=== PATIENT | male | born 1935 | race Caucasian/White ===

== ENCOUNTER 2016-09-27 12:31 | Inpatient (IN) | payer MEDICARE, OTHER ==
--- NOTE | 2016-09-27 12:53 | ER Document Report ---
ED Medical Screen (RME) - General Stated Complaint: RIGHT SIDE BODY PAIN Mode of Arrival: Wheelchair Information source: Patient Notes: Patient presents with right-sided abdominal pain. Patient had an outpatient ultrasound and was advised to come to the emergency department. Patient's outpatient ultrasound shows a large hepatic mass concerning for hepatocellular carcinoma as well as a thrombus in the right hepatic vein and IVC. Patient states he does have some chest pain with respirations daily for the past month I have greeted and performed a rapid initial assessment of this patient. A comprehensive ED assessment and evaluation of the patient, analysis of test results and completion of the medical decision making process will be conducted by additional ED providers. TRAVEL OUTSIDE OF THE [place] IN LAST 30 DAYS: No - Related Data Allergies/Adverse Reactions: aspirin [Aspirin] Allergy (Verified 09/27/16 12:48) bacitracin [Bacitracin] Allergy (Verified 09/27/16 12:48) diphenhydramine HCl [From Benadryl] Allergy (Verified 09/27/16 12:48) latex Allergy (Verified 09/27/16 12:48) Penicillins Allergy (Verified 09/27/16 12:48) Sulfa (Sulfonamide Antibiotics) Allergy (Verified 09/27/16 12:48) ibuprofen Adverse Reaction (Verified 09/27/16 12:48) naproxen sodium [From Aleve] Adverse Reaction (Verified 09/27/16 12:48) Past Medical History - Past Medical History Cardiac Medical History: Reports: Hx Hypercholesterolemia, Hx Hypertension Pulmonary Medical History: Reports: Hx COPD Denies: Hx Tuberculosis GI Medical History: Reports: Hx Gastroesophageal Reflux Disease - Immunizations Hx Diphtheria, Pertussis, Tetanus Vaccination: Yes Physical Exam - Vital signs Vitals: Temp Pulse Resp BP Pulse Ox 98.2 F 98 17 160/74 H 96 09/27/16 12:37 09/27/16 12:37 09/27/16 12:37 09/27/16 12:37 09/27/16 12:37 - Abdominal Tenderness: Tender - Right lateral side pain Course - Vital Signs Vital signs: Temp Pulse Resp BP Pulse Ox 98.2 F 98 17 160/74 H 96 09/27/16 12:37 09/27/16 12:37 09/27/16 12:37 09/27/16 12:37 09/27/16 12:37
[2016-09-27 13:45] LABS: ABSOLUTE BASOPHILS # (AUTO) 0.1 10^3/uL (0.0-0.2); ABSOLUTE EOSINOPHILS # (AUTO) 1.1 10^3/uL (0.0-0.6); ABSOLUTE MONOCYTES (AUTO) 0.5 10^3/uL (0.1-1.4); ABSOLUTE NEUT (AUTO) 4.9 10^3/uL (1.7-8.2); BASOPHILS % (AUTO) 1.3 % (0-2); EOSINOPHILS % (AUTO) 14.9 % (0-6); HEMATOCRIT 31.1 % (37.9-51.0); HEMOGLOBIN 10.5 g/dL (13.5-17.0); HGB HCT DIFFERENCE 0.4; LYMPHOCYTES % (AUTO) 12.6 % (13-45); MEAN CORPUSCULAR HEMOGLOBIN 28.5 pg (27.0-33.4); MEAN CORPUSCULAR HGB CONC 33.9 g/dL (32.0-36.0); MEAN CORPUSCULAR VOLUME 84 fl (80-97); MONOCYTES % (AUTO) 6.6 % (3-13); RED BLOOD COUNT 3.69 10^6/uL (4.35-5.55); SEGMENTED NEUTROPHILS % (AUTO) 64.6 % (42-78); WHITE BLOOD COUNT 7.5 10^3/uL (4.0-10.5)
[2016-09-27 13:50] LABS: PROTHROMBIN TIME 13.7 SEC (11.4-15.4)
[2016-09-27 13:51] LABS: PARTIAL THROMBOPLASTIN TIME 33.3 SEC (23.5-35.8)
--- NOTE | 2016-09-27 14:06 | ER Document Report ---
ED General Pain - General Chief Complaint: Back Pain Stated Complaint: RIGHT SIDE BODY PAIN Mode of Arrival: Wheelchair Notes: The patient is an 80-year-old male, PMHx COPD, Mell ruiz, presents with several weeks of right-sided abdominal pain. He had an outpatient ultrasound by his primary care physician of his right upper quadrant which showed an IVC and right hepatic vein partial thrombus with a large hepatic mass concerning for hepatocellular carcinoma. He was placed on OxyContin and oxycodone 2 weeks ago for the pain. He denies any current pain. Denies weight loss, fevers, night sweats, nausea, vomiting, abdominal swelling, headache, back pain, chest pain or shortness of breath. TRAVEL OUTSIDE OF THE [place] IN LAST 30 DAYS: No - Related Data Allergies/Adverse Reactions: aspirin [Aspirin] Allergy (Verified 09/27/16 12:48) bacitracin [Bacitracin] Allergy (Verified 09/27/16 12:48) diphenhydramine HCl [From Benadryl] Allergy (Verified 09/27/16 12:48) latex Allergy (Verified 09/27/16 12:48) Penicillins Allergy (Verified 09/27/16 12:48) Sulfa (Sulfonamide Antibiotics) Allergy (Verified 09/27/16 12:48) ibuprofen Adverse Reaction (Verified 09/27/16 12:48) naproxen sodium [From Aleve] Adverse Reaction (Verified 09/27/16 12:48) Past Medical History - General Information source: Patient - Social History Smoking Status: Never Smoker Chew tobacco use (# tins/day): No Frequency of alcohol use: None Drug Abuse: None Family History: Reviewed & Not Pertinent Patient has suicidal ideation: No Patient has homicidal ideation: No - Past Medical History Cardiac Medical History: Reports: Hx Hypercholesterolemia, Hx Hypertension Pulmonary Medical History: Reports: Hx COPD Denies: Hx Tuberculosis Renal/ Medical History: Denies: Hx Peritoneal Dialysis GI Medical History: Reports: Hx Gastroesophageal Reflux Disease - Immunizations Hx Diphtheria, Pertussis, Tetanus Vaccination: Yes Hx Pneumococcal Vaccination: 07/16/13 Review of Systems - Review of Systems Notes: REVIEW OF SYSTEMS: CONSTITUTIONAL: -fevers, -chills EENT: -eye pain, -difficulty swallowing, -nasal congestion CARDIOVASCULAR:-chest pain, -syncope. RESPIRATORY: -cough, -SOB GASTROINTESTINAL: +abdominal pain, -nausea, -vomiting, -diarrhea GENITOURINARY: -dysuria, -hematuria MUSCULOSKELETAL: -back pain, -neck pain SKIN: -rash or skin lesions. HEMATOLOGIC: -easy bruising or bleeding. LYMPHATIC: -swollen, enlarged glands. NEUROLOGICAL: -altered mental status or loss of consciousness, -headache, - neurologic symptoms PSYCHIATRIC: -anxiety, -depression. ALL OTHER SYSTEMS REVIEWED AND NEGATIVE. Physical Exam - Vital signs Vitals: Temp Pulse Resp BP Pulse Ox 98.2 F 98 17 160/74 H 96 09/27/16 12:37 09/27/16 12:37 09/27/16 12:37 09/27/16 12:37 09/27/16 12:37 - Notes Notes: PHYSICAL EXAMINATION: GENERAL: Well-appearing, well-nourished and in no acute distress. HEAD: Atraumatic, normocephalic. EYES: Pupils equal round and reactive to light, extraocular movements intact, sclera anicteric, conjunctiva are normal. ENT: nares patent, oropharynx clear without exudates. Moist mucous membranes. NECK: Normal range of motion, supple without lymphadenopathy LUNGS: Breath sounds clear to auscultation bilaterally and equal. No wheezes rales or rhonchi. HEART: Regular rate and rhythm without murmurs ABDOMEN: Soft, nontender, normoactive bowel sounds. No guarding, no rebound. No masses appreciated. No ascites. EXTREMITIES: Normal range of motion. 1+ pitting edema. No cyanosis. NEUROLOGICAL: Cranial nerves grossly intact. Normal speech, normal gait. Normal sensory, motor, and reflex exams. PSYCH: Normal mood, normal affect. SKIN: Warm, Dry, normal turgor, no rashes or lesions noted. Course - Re-evaluation Re-evalutation: Patient with ultrasound concerning for new hepatocellular carcinoma and partial thrombus in IVC and right hepatic vein. Spoke to Dr. Henry (Oncology military source operations specialist ) and he recommends beginning subcutaneous Lovenox and obtaining CT abdomen and pelvis and sending AFP, hepatitis panel and hep C PCR. He will see patient tomorrow morning. Spoke to patient and and made them aware of the high likelihood of liver cancer. They understand. Spoke to Dr. Lind and he has accepted patient as Inpatient Telemetry at 15:15. 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
[2016-09-27 14:15] LABS: ALANINE AMINOTRANSFERASE 83 U/L (21-72); ALBUMIN 3.4 g/dL (3.5-5.0); ALKALINE PHOSPHATASE 141 U/L (38-126); ANION GAP 14 (5-19); ASPARTATE AMINO TRANSFERASE 103 U/L (17-59); BILIRUBIN,TOTAL 1.6 mg/dL (0.2-1.3); BLOOD UREA NITROGEN 23 mg/dL (7-20); CALCIUM 9.4 mg/dL (8.4-10.2); CARBON DIOXIDE 24 mmol/L (22-30); CHLORIDE 101 mmol/L (98-107); CREATINE KINASE 160 U/L (55-170); CREATININE RESULT 0.96 mg/dL (0.52-1.25); GLUCOSE 137 mg/dL (75-110); MAGNESIUM 1.9 mg/dL (1.6-2.3); POTASSIUM 4.2 mmol/L (3.6-5.0); SODIUM 138.5 mmol/L (137-145); TOTAL PROTEIN 6.5 g/dL (6.3-8.2)
[2016-09-27 14:26] LABS: CREATINE KINASE MB 2.29 ng/mL (<4.55)
[2016-09-27 14:28] LABS: TROPONIN I < 0.012 ng/mL
[2016-09-27] MEDS ORDERED: ENOXAPARIN SODIUM INJ 80 MG/0.8 ML DISP.SYRIN SUBCUT ONE (14:58)
--- NOTE | 2016-09-27 16:53 | EKG REPORT ---
SEVERITY:- NORMAL ECG - SINUS RHYTHM : Confirmed by: Jacqui Oliveros MD 27-Sep-2016 16:53:27
[2016-09-27] MEDS ORDERED: ONDANSETRON HCL INJ/PF 4 MG/2 ML SDV IV PRN (18:01)
[2016-09-27] MEDS ORDERED: ACETAMINOPHEN 325 MG TABLET PO PRN (18:01)
[2016-09-27] MEDS ORDERED: IPRATROPIUM/ALBUTEROL 0.5-2.5 MG/3 ML AMPUL NEB PRN (18:01)
--- NOTE | 2016-09-27 18:23 | PDOC H&P ---
History of Present Illness Admission Date/PCP: 09/27/16 16:16 Patient complains of: Abnormal abdominal ultrasound History of Present Illness: JADEN TIJERINA is a 80 year old male, with COPD hypertension and hyperlipidemia, sent to the emergency room from the primary care physician's office due to an abdominal ultrasound that was abnormal. The patient has been dealing with abdominal pain for the past several months. Patient stated that it will radiate on the shoulder blade down to the right side of the abdomen. Sometimes it goes down to the legs. It comes and goes, sharp in nature, lasts for only a few seconds. Because of the recurrence in nature his primary care physician obtain an abdominal ultrasound of which a finding of inferior vena cava thrombosis and hepatic vein thrombosis was noted. There was likewise a hepatic mass. The patient was sent to the emergency room for evaluation and was referred for admission. Past Medical History Cardiac Medical History: Reports: Hyperlipidema, Hypertension Pulmonary Medical History: Reports: Chronic Obstructive Pulmonary Disease (COPD) Denies: Tuberculosis GI Medical History: Reports: Gastroesophageal Reflux Disease Past Surgical History Past Surgical History: Reports: Carotid Endarterectomy, Herniorrhaphy, Other - Chest tube placement Social History Information Source: Patient Smoking Status: Never Smoker Frequency of Alcohol Use: None Hx Recreational Drug Use: No Drugs: None Hx Prescription Drug Abuse: No Family History Family History: Malignancy Parental Family History Reviewed: Yes Children Family History Reviewed: Yes Sibling(s) Family History Reviewed.: Yes Medication/Allergy Home Medications: Fexofenadine HCl [Sammi] 180 mg PO DAILY 09/27/16 Fluticasone Propionate [Flonase Nasal [place] 50 Mcg/[place] 16 gm] 2 spray NASL DAILY 09/27/16 Fluticasone/Salmeterol [Advair 500-50 Diskus 28 Dose] 1 puff IH DAILY 09/27/16 Guaifenesin [Mucinex] 2 tab PO BID 09/27/16 Montelukast Sodium [Singulair 10 mg Tablet] 10 mg PO QPM 09/27/16 [place]-3 Acid Ethyl Esters [Lovaza 1 gm Capsule] 2 gm PO BID 09/27/16 Omeprazole 20 mg PO DAILY 09/27/16 Simvastatin [Zocor 80 mg Tablet] 80 mg PO DAILY 09/27/16 Tiotropium [place] [Spiriva Handihaler 18 mcg/dose (30 Dose)] 1 cap IH DAILY Vitamin E [Natural Vitamin E] 200 unit PO DAILY 09/27/16 Allergies/Adverse Reactions: aspirin [Aspirin] Allergy (Verified 09/27/16 12:48) bacitracin [Bacitracin] Allergy (Verified 09/27/16 12:48) diphenhydramine HCl [From Benadryl] Allergy (Verified 09/27/16 12:48) latex Allergy (Verified 09/27/16 12:48) Penicillins Allergy (Verified 09/27/16 12:48) Sulfa (Sulfonamide Antibiotics) Allergy (Verified 09/27/16 12:48) ibuprofen Adverse Reaction (Verified 09/27/16 12:48) naproxen sodium [From Aleve] Adverse Reaction (Verified 09/27/16 12:48) Review of Systems Constitutional: PRESENT: weight loss - Unquantified. ABSENT: chills, fever(s), headache(s), night sweats, weight gain Eyes: ABSENT: visual disturbances Ears: ABSENT: hearing changes Nose, Mouth, and Throat: ABSENT: mouth pain, sore throat Cardiovascular: ABSENT: chest pain, dyspnea on exertion, edema, orthropnea, palpitations Respiratory: PRESENT: cough. ABSENT: dyspnea, hemoptysis Gastrointestinal: PRESENT: abdominal pain. ABSENT: constipation, diarrhea, hematemesis, hematochezia, nausea, vomiting Genitourinary: PRESENT: nocturia. ABSENT: dysuria, hematuria Musculoskeletal: ABSENT: joint swelling Integumentary: ABSENT: pruritus, rash, wounds Neurological: ABSENT: abnormal gait, abnormal speech, confusion, dizziness, focal weakness, syncope Psychiatric: ABSENT: anxiety, depression, homidical ideation, suicidal ideation Endocrine: ABSENT: cold intolerance, heat intolerance, polydipsia, polyuria Hematologic/Lymphatic: ABSENT: easy bleeding, easy bruising Physical Exam Vital Signs: Temp Pulse Resp BP Pulse Ox 98.2 F 98 20 159/77 H 94 09/27/16 12:37 09/27/16 12:37 09/27/16 17:32 09/27/16 17:32 09/27/16 17:32 Results Impressions: Chest X-Ray 09/27/16 12:52 IMPRESSION: COPD. NO ACUTE RADIOGRAPHIC FINDING IN THE CHEST. 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?: Yes (2) Hepatic vein thrombosis Is this a current diagnosis for this admission?: Yes (3) Lesion of liver Is this a current diagnosis for this admission?: Yes (4) COPD (chronic obstructive pulmonary disease) Qualifiers: COPD type: unspecified COPD Qualified Code(s): J44.9 - Chronic obstructive pulmonary disease, unspecified Is this a current diagnosis for this admission?: Yes (5) Hyperlipidemia Qualifiers: Hyperlipidemia type: unspecified Qualified Code(s): E78.5 - Hyperlipidemia, unspecified Is this a current diagnosis for this admission?: Yes (6) Hypertension Qualifiers: Hypertension type: essential hypertension Qualified Code(s): I10 - Essential (primary) hypertension Is this a current diagnosis for this admission?: Yes (7) GERD (gastroesophageal reflux disease) Qualifiers: Esophagitis presence: without esophagitis Qualified Code(s): K21.9 - Gastro-esophageal reflux disease without esophagitis Is this a current diagnosis for this admission?: Yes - Time Time Spent: 30 to 50 Minutes - Inpatient Certification Based on my medical assessment, after consideration of the patient's comorbidities, presenting symptoms, or acuity I expect that the services needed warrant INPATIENT care.: Yes I certify that my determination is in accordance with my understanding of Medicare's requirements for reasonable and necessary INPATIENT services [42 CFR 412.3e].: Yes Medical Necessity: Significant Comorbidiites Make Outpatient Treatment Too Risky , Need Close Monitoring Due to Risk of Patient Decompensation, Risk of Diagnosis Which Will Require Inpatient Eval/Care/Monitoring Post Hospital Care: D/C Natural Science Manager Documentation - Plan Summary Plan Summary: The patient will be admitted to telemetry. We will consult oncology for further evaluation and management. We will begin Lovenox full dose. We will check alpha-fetoprotein, carcinoembryonic antigen. We will monitor hematocrit and stool for occult blood. We will monitor liver function tests as well. Further testing depends on initial evaluation as outlined above.
[2016-09-27 22:33] LABS: APPEARANCE,URINE CLEAR; BILIRUBIN,URINE NEGATIVE (NEGATIVE); GLUCOSE, URINE NEGATIVE (NEGATIVE); KETONES,URINE NEGATIVE (NEGATIVE); LEUKOCYTE ESTERASE,URINE NEGATIVE (NEGATIVE); NITRITE,URINE NEGATIVE (NEGATIVE); PROTEIN,URINE NEGATIVE (NEGATIVE); URINE SPECIFIC GRAVITY 1.024
[2016-09-27] MEDS: MONTELUKAST SODIUM 10 MG TABLET PO SCH (23:30)
[2016-09-28] MEDS: NORMAL SALINE 1000 ML 1,000 ML IV PRN ×2 (00:29→18:07)
[2016-09-28] MEDS: LANSOPRAZOLE 30 MG TAB.RAP.DR PO SCH ×2 (06:04→18:07)
[2016-09-28] MEDS: ENOXAPARIN SODIUM INJ 80 MG/0.8 ML DISP.SYRIN SUBCUT SCH (06:06)
[2016-09-28 06:31] LABS: ABSOLUTE BASOPHILS # (AUTO) 0.2 10^3/uL (0.0-0.2); ABSOLUTE EOSINOPHILS # (AUTO) 1.3 10^3/uL (0.0-0.6); ABSOLUTE LYMPHOCYTES (AUTO) 2.1 10^3/uL (0.5-4.7); ABSOLUTE MONOCYTES (AUTO) 0.7 10^3/uL (0.1-1.4); ABSOLUTE NEUT (AUTO) 4.1 10^3/uL (1.7-8.2); BASOPHILS % (AUTO) 2.2 % (0-2); EOSINOPHILS % (AUTO) 15.4 % (0-6); HEMATOCRIT 32.3 % (37.9-51.0); HEMOGLOBIN 10.6 g/dL (13.5-17.0); HGB HCT DIFFERENCE -0.5; LYMPHOCYTES % (AUTO) 25.1 % (13-45); MEAN CORPUSCULAR HEMOGLOBIN 27.6 pg (27.0-33.4); MEAN CORPUSCULAR HGB CONC 32.8 g/dL (32.0-36.0); MEAN CORPUSCULAR VOLUME 84 fl (80-97); RED BLOOD COUNT 3.84 10^6/uL (4.35-5.55); RED CELL DISTRIBUTION WIDTH 15.8 % (11.5-14.0); SEGMENTED NEUTROPHILS % (AUTO) 49.3 % (42-78); WHITE BLOOD COUNT 8.3 10^3/uL (4.0-10.5)
[2016-09-28 06:43] LABS: ANION GAP 12 (5-19); BLOOD UREA NITROGEN 18 mg/dL (7-20); CALCIUM 9.5 mg/dL (8.4-10.2); CARBON DIOXIDE 24 mmol/L (22-30); CHLORIDE 102 mmol/L (98-107); CREATININE RESULT 0.87 mg/dL (0.52-1.25); GLUCOSE 79 mg/dL (75-110); MAGNESIUM 1.9 mg/dL (1.6-2.3); PHOSPHORUS 3.6 mg/dL (2.5-4.5); POTASSIUM 4.3 mmol/L (3.6-5.0); SODIUM 137.8 mmol/L (137-145)
[2016-09-28] MEDS: LORATADINE 10 MG TABLET PO SCH (09:14)
[2016-09-28] MEDS: DOCUSATE SODIUM 100 MG CAPSULE PO SCH ×2 (09:17→18:08)
[2016-09-28] MEDS: GUAIFENESIN 600 MG TABLET.SA PO SCH ×2 (09:17→18:08)
[2016-09-28] MEDS: FLUTICASONE/SALMETEROL DISKUS 500-50 MCG/DOSE IH SCH (09:17)
[2016-09-28] MEDS: FLUTICASONE NASAL SPRAY 50 MCG/SPRY 120 SPRAY/16 GM NASL SCH (09:18)
[2016-09-28] MEDS: TIOTROPIUM BROMIDE DPI 5 CAP/KIT (18 MCG/CAP) IH SCH (09:18)
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
[2016-09-28] MEDS ORDERED: (PENDING PHARMACY ID) (Oxycodone Hcl/Acetaminophen [Oxycodon-Acetaminophen 7.5-325] 1 TAB) PO PRN (13:46)
--- NOTE | 2016-09-28 13:46 | PDOC PROGRESS REPORT ---
Subjective Progress Note for:: 09/28/16 Subjective:: Voiced no complaints. No abdominal pain nausea or vomiting. No tea-colored urine. No noted pale stools. No reported jaundice. No bleeding noted. Physical Exam Vital Signs: Temp Pulse Resp BP Pulse Ox 97.6 F 86 20 141/62 H 96 09/28/16 11:19 09/28/16 11:19 09/28/16 11:19 09/28/16 11:19 09/28/16 11:19 Intake & Output 09/27/16 09/28/16 09/29/16 06:59 06:59 06:59 Intake Total 623 Output Total 150 Balance 473 Weight 73.4 kg General appearance: PRESENT: no acute distress, cooperative Head exam: PRESENT: normocephalic Eye exam: PRESENT: EOMI. ABSENT: scleral icterus Mouth exam: PRESENT: moist, neck supple Neck exam: ABSENT: JVD Respiratory exam: PRESENT: clear to auscultation stephen. ABSENT: rhonchi, wheezes Cardiovascular exam: PRESENT: RRR. ABSENT: gallop GI/Abdominal exam: PRESENT: soft. ABSENT: distended, tenderness Extremities exam: PRESENT: +1 edema Neurological exam: PRESENT: alert, awake, oriented to situation Skin exam: PRESENT: dry, warm. ABSENT: cyanosis Results Laboratory Results: 09/28/16 05:43 09/28/16 05:43 09/27/16 09/28/16 09/28/16 22:15 05:43 05:43 WBC 8.3 RBC 3.84 L Hgb 10.6 L Hct 32.3 L MCV 84 MCH 27.6 MCHC 32.8 RDW 15.8 H Plt Count 378 Seg Neutrophils % 49.3 Lymphocytes % 25.1 Monocytes % 8.0 Eosinophils % 15.4 H Basophils % 2.2 H Absolute Neutrophils 4.1 Absolute Lymphocytes 2.1 Absolute Monocytes 0.7 Absolute Eosinophils 1.3 H Absolute Basophils 0.2 Sodium 137.8 Potassium 4.3 Chloride 102 Carbon Dioxide 24 Anion Gap 12 BUN 18 Creatinine 0.87 Est GFR ( Amer) > 60 Est GFR (Non-Af Amer) > 60 Glucose 79 Calcium 9.5 Phosphorus 3.6 Magnesium 1.9 Urine Color YELLOW Urine Appearance CLEAR Urine pH 5.0 Ur Specific [place] 1.024 Urine Protein NEGATIVE Urine Glucose (UA) NEGATIVE Urine Ketones NEGATIVE Urine Blood NEGATIVE Urine Nitrite NEGATIVE Ur Leukocyte Esterase NEGATIVE Urine WBC (Auto) 0 Urine RBC (Auto) 1 Stool Occult Blood 09/28/16 10:08 WBC RBC Hgb Hct MCV MCH MCHC RDW Plt Count Seg Neutrophils % Lymphocytes % Monocytes % Eosinophils % Basophils % Absolute Neutrophils Absolute Lymphocytes Absolute Monocytes Absolute Eosinophils Absolute Basophils Sodium Potassium Chloride Carbon Dioxide Anion Gap BUN Creatinine Est GFR ( Amer) Est GFR (Non-Af Amer) Glucose Calcium Phosphorus Magnesium Urine Color Urine Appearance Urine pH Ur Specific [place] Urine Protein Urine Glucose (UA) Urine Ketones Urine Blood Urine Nitrite Ur Leukocyte Esterase Urine WBC (Auto) Urine RBC (Auto) Stool Occult Blood NEGATIVE Impressions: Chest X-Ray 09/27/16 12:52 IMPRESSION: COPD. NO ACUTE RADIOGRAPHIC FINDING IN THE CHEST. Abdomen/Pelvis CT 09/27/16 15:05 IMPRESSION: 20 cm heterogeneous enhancing mass centered in the right lobe of the liver. Mass effect is present on adjacent structures with mild intrahepatic biliary ductal dilatation in the inferior right lobe. No thrombus is identified in the portal or IVC in its enhanced portions, there is significant compression of the IVC above the renal vessel level to the diaphragmatic hiatus. 10 mm nodule in the right major fissure. 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?: Yes (2) Hepatic vein thrombosis Is this a current diagnosis for this admission?: Yes (3) Lesion of liver Is this a current diagnosis for this admission?: Yes (4) COPD (chronic obstructive pulmonary disease) Qualifiers: COPD type: unspecified COPD Qualified Code(s): J44.9 - Chronic obstructive pulmonary disease, unspecified Is this a current diagnosis for this admission?: Yes (5) Hyperlipidemia Qualifiers: Hyperlipidemia type: unspecified Qualified Code(s): E78.5 - Hyperlipidemia, unspecified Is this a current diagnosis for this admission?: Yes (6) Hypertension Qualifiers: Hypertension type: essential hypertension Qualified Code(s): I10 - Essential (primary) hypertension Is this a current diagnosis for this admission?: Yes (7) GERD (gastroesophageal reflux disease) Qualifiers: Esophagitis presence: without esophagitis Qualified Code(s): K21.9 - Gastro-esophageal reflux disease without esophagitis Is this a current diagnosis for this admission?: Yes - Time Time Spent with patient: 15-24 minutes - Plan Summary Plan Summary: Continue Lovenox for now. Discussed case with oncology service. Fine-needle aspiration biopsy would be done early next week. CT scan of the chest and head for metastatic workup. We will recheck hemoglobin and hematocrit in the morning.
[2016-09-28] MEDS ORDERED: OXYCODONE-ACETAMINOPHEN 5-325 MG TABLET PO PRN (14:44)
[2016-09-28] MEDS ORDERED: OXYCODONE HCL IR 5 MG TABLET PO PRN (14:45)
[2016-09-28] MEDS: FINASTERIDE 5 MG TABLET PO SCH (18:08)
[2016-09-28] MEDS: MONTELUKAST SODIUM 10 MG TABLET PO SCH (21:44)
[2016-09-28] MEDS: OXYCODONE HCL IR 5 MG TABLET PO PRN (21:52)
[2016-09-29 05:56] LABS: HEMATOCRIT 30.9 % (37.9-51.0); HEMOGLOBIN 10.5 g/dL (13.5-17.0); HGB HCT DIFFERENCE 0.6; MEAN CORPUSCULAR HEMOGLOBIN 28.5 pg (27.0-33.4); MEAN CORPUSCULAR HGB CONC 33.8 g/dL (32.0-36.0); MEAN CORPUSCULAR VOLUME 84 fl (80-97); RED BLOOD COUNT 3.68 10^6/uL (4.35-5.55); RED CELL DISTRIBUTION WIDTH 16.1 % (11.5-14.0); WHITE BLOOD COUNT 7.4 10^3/uL (4.0-10.5)
[2016-09-29] MEDS: LANSOPRAZOLE 30 MG TAB.RAP.DR PO SCH ×2 (06:31→17:52)
[2016-09-29] MEDS: ENOXAPARIN SODIUM INJ 80 MG/0.8 ML DISP.SYRIN SUBCUT SCH ×2 (06:31→17:53)
[2016-09-29] MEDS: PREDNISONE 10 MG TABLET PO SCH (09:44)
[2016-09-29] MEDS: LORATADINE 10 MG TABLET PO SCH (09:44)
[2016-09-29] MEDS: TIOTROPIUM BROMIDE DPI 5 CAP/KIT (18 MCG/CAP) IH SCH (09:44)
[2016-09-29] MEDS: DOCUSATE SODIUM 100 MG CAPSULE PO SCH ×2 (09:45→17:52)
[2016-09-29] MEDS: GUAIFENESIN 600 MG TABLET.SA PO SCH ×2 (09:45→17:53)
[2016-09-29] MEDS: FLUTICASONE/SALMETEROL DISKUS 500-50 MCG/DOSE IH SCH (09:45)
[2016-09-29] MEDS: FLUTICASONE NASAL SPRAY 50 MCG/SPRY 120 SPRAY/16 GM NASL SCH (09:45)
[2016-09-29] MEDS: NORMAL SALINE 1000 ML 1,000 ML IV PRN (09:48)
--- NOTE | 2016-09-29 14:12 | PDOC PROGRESS REPORT ---
Subjective Progress Note for:: 09/29/16 Subjective:: Voiced no complaints. No abdominal pain nausea or vomiting. No tea-colored urine. No noted pale stools. No reported jaundice. No bleeding noted. Patient has some trouble sleeping last night but after the pain medication the patient did well. He wants to resume back his omega-3 fatty acids. Physical Exam Vital Signs: Temp Pulse Resp BP Pulse Ox 97.3 F 88 20 133/71 H 98 09/29/16 11:50 09/29/16 11:50 09/29/16 11:50 09/29/16 11:50 09/29/16 11:50 Intake & Output 09/28/16 09/29/16 09/30/16 06:59 06:59 06:59 Intake Total 623 3205 Output Total 150 300 Balance 473 2905 Weight 73.4 kg 73.4 kg General appearance: PRESENT: no acute distress, cooperative Head exam: PRESENT: normocephalic Eye exam: PRESENT: EOMI Mouth exam: PRESENT: moist, neck supple Neck exam: ABSENT: JVD Respiratory exam: PRESENT: clear to auscultation stephen Cardiovascular exam: PRESENT: RRR GI/Abdominal exam: PRESENT: normal bowel sounds, soft. ABSENT: distended Extremities exam: PRESENT: other - Trace edema Neurological exam: PRESENT: alert, awake, oriented to situation Skin exam: PRESENT: dry, warm. ABSENT: cyanosis Results Laboratory Results: 09/29/16 05:26 09/28/16 05:43 09/29/16 05:26 WBC 7.4 RBC 3.68 L Hgb 10.5 L Hct 30.9 L MCV 84 MCH 28.5 MCHC 33.8 RDW 16.1 H Plt Count 371 Impressions: Chest X-Ray 09/27/16 12:52 IMPRESSION: COPD. NO ACUTE RADIOGRAPHIC FINDING IN THE CHEST. Abdomen/Pelvis CT 09/27/16 15:05 IMPRESSION: 20 cm heterogeneous enhancing mass centered in the right lobe of the liver. Mass effect is present on adjacent structures with mild intrahepatic biliary ductal dilatation in the inferior right lobe. No thrombus is identified in the portal or IVC in its enhanced portions, there is significant compression of the IVC above the renal vessel level to the diaphragmatic hiatus. 10 mm nodule in the right major fissure. Chest CT 09/28/16 00:00 IMPRESSION: No acute consolidations or pleural effusions are identified. Emphysematous changes with chronic appearing interstitial changes. Other findings as noted above Head CT 09/28/16 00:00 IMPRESSION: MILD CHRONIC CHANGES OF ATROPHY AND MICROVASCULAR ISCHEMIA. NO ACUTE PROCESS. NO ENHANCING LESIONS. NO ABNORMAL ENHANCEMENT. 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?: Yes (2) Hepatic vein thrombosis Is this a current diagnosis for this admission?: Yes (3) Lesion of liver Is this a current diagnosis for this admission?: Yes (4) COPD (chronic obstructive pulmonary disease) Qualifiers: COPD type: unspecified COPD Qualified Code(s): J44.9 - Chronic obstructive pulmonary disease, unspecified Is this a current diagnosis for this admission?: Yes (5) Hyperlipidemia Qualifiers: Hyperlipidemia type: unspecified Qualified Code(s): E78.5 - Hyperlipidemia, unspecified Is this a current diagnosis for this admission?: Yes (6) Hypertension Qualifiers: Hypertension type: essential hypertension Qualified Code(s): I10 - Essential (primary) hypertension Is this a current diagnosis for this admission?: Yes (7) GERD (gastroesophageal reflux disease) Qualifiers: Esophagitis presence: without esophagitis Qualified Code(s): K21.9 - Gastro-esophageal reflux disease without esophagitis Is this a current diagnosis for this admission?: Yes - Time Time Spent with patient: Less than 15 minutes - Plan Summary Plan Summary: Continue current anticoagulants. This will be held tonight and patient will undergo liver biopsy in the morning CT guided. We will continue to monitor.
[2016-09-29] MEDS: FINASTERIDE 5 MG TABLET PO SCH (17:53)
[2016-09-29] MEDS: OMEGA-3 ACID ETHYL ESTERS 1 GM CAPSULE PO SCH (17:53)
[2016-09-29] MEDS: MONTELUKAST SODIUM 10 MG TABLET PO SCH (22:25)
[2016-09-30] MEDS: LANSOPRAZOLE 30 MG TAB.RAP.DR PO SCH ×2 (05:27→17:25)
[2016-09-30 06:51] LABS: HEMATOCRIT 32.5 % (37.9-51.0); HEMOGLOBIN 10.7 g/dL (13.5-17.0); HGB HCT DIFFERENCE -0.4; MEAN CORPUSCULAR HEMOGLOBIN 28.3 pg (27.0-33.4); MEAN CORPUSCULAR VOLUME 86 fl (80-97); RED BLOOD COUNT 3.78 10^6/uL (4.35-5.55); RED CELL DISTRIBUTION WIDTH 16.4 % (11.5-14.0); WHITE BLOOD COUNT 7.7 10^3/uL (4.0-10.5)
[2016-09-30 08:21] LABS: APPEARANCE,URINE CLEAR; BILIRUBIN,URINE NEGATIVE (NEGATIVE); GLUCOSE, URINE NEGATIVE (NEGATIVE); KETONES,URINE NEGATIVE (NEGATIVE); LEUKOCYTE ESTERASE,URINE NEGATIVE (NEGATIVE); NITRITE,URINE NEGATIVE (NEGATIVE); PROTEIN,URINE NEGATIVE (NEGATIVE); URINE SPECIFIC GRAVITY 1.009
--- NOTE | 2016-09-30 08:25 | PDOC PROGRESS REPORT ---
Subjective Progress Note for:: 09/30/16 Subjective:: No acute events overnight, patient seems to be doing well today. Physical Exam Vital Signs: Temp Pulse Resp BP Pulse Ox 97.5 F 94 18 147/81 H 94 09/29/16 23:23 09/30/16 07:00 09/29/16 23:23 09/29/16 23:23 09/29/16 23:23 Intake & Output 09/29/16 09/30/16 10/01/16 06:59 06:59 06:59 Intake Total 3205 2983 Output Total 300 Balance 2905 2983 Weight 73.4 kg 73.4 kg General appearance: PRESENT: no acute distress, well-developed, well-nourished Head exam: PRESENT: atraumatic, normocephalic Eye exam: PRESENT: conjunctiva pink, EOMI, PERRLA. ABSENT: scleral icterus Ear exam: PRESENT: normal external ear exam Mouth exam: PRESENT: moist, tongue midline Neck exam: ABSENT: carotid bruit, JVD, lymphadenopathy, thyromegaly Respiratory exam: PRESENT: clear to auscultation stephen. ABSENT: rales, rhonchi, wheezes Cardiovascular exam: PRESENT: RRR. ABSENT: diastolic murmur, rubs, systolic murmur Pulses: PRESENT: normal dorsalis pedis pul Vascular exam: PRESENT: normal capillary refill GI/Abdominal exam: PRESENT: normal bowel sounds, soft. ABSENT: distended, guarding, mass, organolmegaly, rebound, tenderness Rectal exam: PRESENT: deferred Extremities exam: PRESENT: full ROM. ABSENT: calf tenderness, clubbing, pedal edema Neurological exam: PRESENT: alert, awake, oriented to person, oriented to place , oriented to time, oriented to situation, CN II-XII grossly intact. ABSENT: motor sensory deficit Psychiatric exam: PRESENT: appropriate affect, normal mood. ABSENT: homicidal ideation, suicidal ideation Skin exam: PRESENT: dry, intact, warm. ABSENT: cyanosis, rash Results Laboratory Results: 09/30/16 06:19 09/28/16 05:43 09/30/16 06:19 WBC 7.7 RBC 3.78 L Hgb 10.7 L Hct 32.5 L MCV 86 MCH 28.3 MCHC 33.0 RDW 16.4 H Plt Count 384 Impressions: Chest X-Ray 09/27/16 12:52 IMPRESSION: COPD. NO ACUTE RADIOGRAPHIC FINDING IN THE CHEST. Abdomen/Pelvis CT 09/27/16 15:05 IMPRESSION: 20 cm heterogeneous enhancing mass centered in the right lobe of the liver. Mass effect is present on adjacent structures with mild intrahepatic biliary ductal dilatation in the inferior right lobe. No thrombus is identified in the portal or IVC in its enhanced portions, there is significant compression of the IVC above the renal vessel level to the diaphragmatic hiatus. 10 mm nodule in the right major fissure. Chest CT 09/28/16 00:00 IMPRESSION: No acute consolidations or pleural effusions are identified. Emphysematous changes with chronic appearing interstitial changes. Other findings as noted above Head CT 09/28/16 00:00 IMPRESSION: MILD CHRONIC CHANGES OF ATROPHY AND MICROVASCULAR ISCHEMIA. NO ACUTE PROCESS. NO ENHANCING LESIONS. NO ABNORMAL ENHANCEMENT. Status: Image reviewed by me Assessment & Plan - Diagnosis (1) Lesion of liver Is this a current diagnosis for this admission?: YesPlan: CT of the chest and head are negative, CT of the liver indicates a primary liver lesion, this most likely is HCC. Biopsy pending today, AFP also pending. (2) IVC thrombosis Is this a current diagnosis for this admission?: YesPlan: Continue with Lovenox, being held today for biopsy, we'll need to restart and probably discharge either with Lovenox or Arixtra. - Time Time Spent with patient: 15-24 minutes Critical Time spent with patient: 15-24 minutes Anticipated discharge: Home Within: within 48 hours - Inpatient Certification Based on my medical assessment, after consideration of the patient's comorbidities, presenting symptoms, or acuity I expect that the services needed warrant INPATIENT care.: Yes I certify that my determination is in accordance with my understanding of Medicare's requirements for reasonable and necessary INPATIENT services [42 CFR 412.3e].: Yes Medical Necessity: Need for Surgery
--- NOTE | 2016-09-30 09:04 | PDOC PROGRESS REPORT ---
Subjective Progress Note for:: 09/30/16 Subjective:: Voiced no complaints at all. No abdominal pain nausea or vomiting. No tea- colored urine. No noted pale stools. No reported jaundice. No bleeding noted. He is going for CT guided biopsy of the liver mass today. Physical Exam Vital Signs: Temp Pulse Resp BP Pulse Ox 97.5 F 88 16 149/66 H 95 09/30/16 08:23 09/30/16 08:23 09/30/16 08:23 09/30/16 08:23 09/30/16 08:23 Intake & Output 09/29/16 09/30/16 10/01/16 06:59 06:59 06:59 Intake Total 3205 2983 Output Total 300 Balance 2905 2983 Weight 73.4 kg 73.4 kg General appearance: PRESENT: no acute distress, cooperative Head exam: PRESENT: normocephalic Eye exam: PRESENT: EOMI Mouth exam: PRESENT: moist, neck supple Neck exam: PRESENT: other - No jugular venous distention Respiratory exam: PRESENT: clear to auscultation stephen, other - No wheezing or rhonchi Cardiovascular exam: PRESENT: RRR, other - No gallops GI/Abdominal exam: PRESENT: hypoactive bowel sounds, soft, other - No tenderness noted Extremities exam: PRESENT: other - Trace edema Neurological exam: PRESENT: alert, awake Skin exam: PRESENT: dry, warm, other - No cyanosis Results Laboratory Results: 09/30/16 06:19 09/28/16 05:43 09/30/16 09/30/16 06:19 08:00 WBC 7.7 RBC 3.78 L Hgb 10.7 L Hct 32.5 L MCV 86 MCH 28.3 MCHC 33.0 RDW 16.4 H Plt Count 384 Urine Color YELLOW Urine Appearance CLEAR Urine pH 5.0 Ur Specific [place] 1.009 Urine Protein NEGATIVE Urine Glucose (UA) NEGATIVE Urine Ketones NEGATIVE Urine Blood NEGATIVE Urine Nitrite NEGATIVE Ur Leukocyte Esterase NEGATIVE Urine RBC (Auto) 1 Impressions: Chest X-Ray 09/27/16 12:52 IMPRESSION: COPD. NO ACUTE RADIOGRAPHIC FINDING IN THE CHEST. Abdomen/Pelvis CT 09/27/16 15:05 IMPRESSION: 20 cm heterogeneous enhancing mass centered in the right lobe of the liver. Mass effect is present on adjacent structures with mild intrahepatic biliary ductal dilatation in the inferior right lobe. No thrombus is identified in the portal or IVC in its enhanced portions, there is significant compression of the IVC above the renal vessel level to the diaphragmatic hiatus. 10 mm nodule in the right major fissure. Chest CT 09/28/16 00:00 IMPRESSION: No acute consolidations or pleural effusions are identified. Emphysematous changes with chronic appearing interstitial changes. Other findings as noted above Head CT 09/28/16 00:00 IMPRESSION: MILD CHRONIC CHANGES OF ATROPHY AND MICROVASCULAR ISCHEMIA. NO ACUTE PROCESS. NO ENHANCING LESIONS. NO ABNORMAL ENHANCEMENT. 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?: Yes (2) Hepatic vein thrombosis Is this a current diagnosis for this admission?: Yes (3) Lesion of liver Is this a current diagnosis for this admission?: Yes (4) COPD (chronic obstructive pulmonary disease) Qualifiers: COPD type: unspecified COPD Qualified Code(s): J44.9 - Chronic obstructive pulmonary disease, unspecified Is this a current diagnosis for this admission?: Yes (5) Hyperlipidemia Qualifiers: Hyperlipidemia type: unspecified Qualified Code(s): E78.5 - Hyperlipidemia, unspecified Is this a current diagnosis for this admission?: Yes (6) Hypertension Qualifiers: Hypertension type: essential hypertension Qualified Code(s): I10 - Essential (primary) hypertension Is this a current diagnosis for this admission?: Yes (7) GERD (gastroesophageal reflux disease) Qualifiers: Esophagitis presence: without esophagitis Qualified Code(s): K21.9 - Gastro-esophageal reflux disease without esophagitis Is this a current diagnosis for this admission?: Yes - Time Time Spent with patient: 15-24 minutes - Plan Summary Plan Summary: Patient's alpha-fetoprotein is elevated as well as the CEA. Likely has hepatocellular carcinoma. Awaiting biopsy result. Resume Lovenox tonight after the procedure. Continue other medications and supportive care.
[2016-09-30] MEDS: OMEGA-3 ACID ETHYL ESTERS 1 GM CAPSULE PO SCH ×2 (10:20→17:24)
[2016-09-30] MEDS: DOCUSATE SODIUM 100 MG CAPSULE PO SCH ×2 (10:20→17:24)
[2016-09-30] MEDS: GUAIFENESIN 600 MG TABLET.SA PO SCH ×2 (10:20→17:24)
[2016-09-30] MEDS: LORATADINE 10 MG TABLET PO SCH (10:21)
[2016-09-30] MEDS: PREDNISONE 10 MG TABLET PO SCH (10:21)
[2016-09-30] MEDS: FLUTICASONE/SALMETEROL DISKUS 500-50 MCG/DOSE IH SCH (10:21)
[2016-09-30] MEDS: TIOTROPIUM BROMIDE DPI 5 CAP/KIT (18 MCG/CAP) IH SCH (10:22)
[2016-09-30] MEDS: FLUTICASONE NASAL SPRAY 50 MCG/SPRY 120 SPRAY/16 GM NASL SCH (10:22)
[2016-09-30] MEDS ORDERED: MIDAZOLAM 2 MG/2 ML INJ ONE (11:07)
[2016-09-30] MEDS ORDERED: FENTANYL CITRATE INJ/PF 100 MCG/2 ML AMPUL ONE (11:07)
[2016-09-30] MEDS: FINASTERIDE 5 MG TABLET PO SCH (17:25)
[2016-09-30] MEDS: MONTELUKAST SODIUM 10 MG TABLET PO SCH (21:29)
[2016-09-30] MEDS: OXYCODONE HCL IR 5 MG TABLET PO PRN (21:31)
[2016-10-01] MEDS: LANSOPRAZOLE 30 MG TAB.RAP.DR PO SCH (05:52)
[2016-10-01] MEDS: DOCUSATE SODIUM 100 MG CAPSULE PO SCH (09:29)
[2016-10-01] MEDS: LORATADINE 10 MG TABLET PO SCH (09:29)
[2016-10-01] MEDS: PREDNISONE 10 MG TABLET PO SCH (09:30)
[2016-10-01] MEDS: GUAIFENESIN 600 MG TABLET.SA PO SCH (09:30)
[2016-10-01] MEDS: OMEGA-3 ACID ETHYL ESTERS 1 GM CAPSULE PO SCH (09:30)
[2016-10-01] MEDS: FLUTICASONE/SALMETEROL DISKUS 500-50 MCG/DOSE IH SCH (09:30)
[2016-10-01] MEDS: TIOTROPIUM BROMIDE DPI 5 CAP/KIT (18 MCG/CAP) IH SCH (09:31)
[2016-10-01] MEDS: FLUTICASONE NASAL SPRAY 50 MCG/SPRY 120 SPRAY/16 GM NASL SCH (09:31)
[2016-10-01] MEDS: NORMAL SALINE 1000 ML 1,000 ML IV PRN (09:31)
--- NOTE | 2016-10-01 11:41 | PDOC PROGRESS REPORT ---
Subjective Progress Note for:: 10/01/16 Subjective:: Pt doing well today, feeling ok post bx Physical Exam Vital Signs: Temp Pulse Resp BP Pulse Ox 97.6 F 93 18 153/66 H 94 10/01/16 07:29 10/01/16 07:29 10/01/16 07:29 10/01/16 07:29 10/01/16 07:29 Intake & Output 09/30/16 10/01/16 10/02/16 06:59 06:59 06:59 Intake Total 2983 2511 Balance 2983 2511 Weight 73.4 kg 73.3 kg General appearance: PRESENT: no acute distress, well-developed, well-nourished Head exam: PRESENT: atraumatic, normocephalic Eye exam: PRESENT: conjunctiva pink, EOMI, PERRLA. ABSENT: scleral icterus Ear exam: PRESENT: normal external ear exam Mouth exam: PRESENT: moist, tongue midline Neck exam: ABSENT: carotid bruit, JVD, lymphadenopathy, thyromegaly Respiratory exam: PRESENT: clear to auscultation stephen. ABSENT: rales, rhonchi, wheezes Cardiovascular exam: PRESENT: RRR. ABSENT: diastolic murmur, rubs, systolic murmur Pulses: PRESENT: normal dorsalis pedis pul Vascular exam: PRESENT: normal capillary refill GI/Abdominal exam: PRESENT: normal bowel sounds, soft. ABSENT: distended, guarding, mass, organolmegaly, rebound, tenderness Rectal exam: PRESENT: deferred Extremities exam: PRESENT: full ROM. ABSENT: calf tenderness, clubbing, pedal edema Neurological exam: PRESENT: alert, awake, oriented to person, oriented to place , oriented to time, oriented to situation, CN II-XII grossly intact. ABSENT: motor sensory deficit Psychiatric exam: PRESENT: appropriate affect, normal mood. ABSENT: homicidal ideation, suicidal ideation Skin exam: PRESENT: dry, intact, warm. ABSENT: cyanosis, rash Results Laboratory Results: 09/30/16 06:19 09/28/16 05:43 Impressions: Chest X-Ray 09/27/16 12:52 IMPRESSION: COPD. NO ACUTE RADIOGRAPHIC FINDING IN THE CHEST. Abdomen/Pelvis CT 09/27/16 15:05 IMPRESSION: 20 cm heterogeneous enhancing mass centered in the right lobe of the liver. Mass effect is present on adjacent structures with mild intrahepatic biliary ductal dilatation in the inferior right lobe. No thrombus is identified in the portal or IVC in its enhanced portions, there is significant compression of the IVC above the renal vessel level to the diaphragmatic hiatus. 10 mm nodule in the right major fissure. Chest CT 09/28/16 00:00 IMPRESSION: No acute consolidations or pleural effusions are identified. Emphysematous changes with chronic appearing interstitial changes. Other findings as noted above Head CT 09/28/16 00:00 IMPRESSION: MILD CHRONIC CHANGES OF ATROPHY AND MICROVASCULAR ISCHEMIA. NO ACUTE PROCESS. NO ENHANCING LESIONS. NO ABNORMAL ENHANCEMENT. Guidance Needle Placement CT 09/30/16 00:00 IMPRESSION: CT GUIDED RIGHT LOBE LIVER MASS BIOPSY PERFORMED ABOVE. PATHOLOGY PENDING. NO IMMEDIATE COMPLICATIONS. Liver Biopsy CT 09/30/16 00:00 IMPRESSION: CT GUIDED RIGHT LOBE LIVER MASS BIOPSY PERFORMED ABOVE. PATHOLOGY PENDING. NO IMMEDIATE COMPLICATIONS. Assessment & Plan - Diagnosis (1) Lesion of liver Is this a current diagnosis for this admission?: YesPlan: Likely HCC, awaiting liver bx, AFP>100 so seems c/w that, see me 1-2 weeks for results (2) IVC thrombosis Is this a current diagnosis for this admission?: YesPlan: Would d/c w/ lovenox or arixtra, LFTs up so would not use newer anticoags for now - Time Time Spent with patient: 15-24 minutes Critical Time spent with patient: 15-24 minutes Anticipated discharge: Home
[2016-10-01 12:23] VITALS: BP 136/65
--- NOTE | 2016-10-01 17:26 | PDOC DISCHARGE SUMMARY ---
General - Admit/Disc Date/PCP Admission Date/Primary Care Provider: 09/27/16 18:02 Discharge Date: 10/01/16 - Discharge Diagnosis (1) Lesion of liver Is this a current diagnosis for this admission?: YesSummary: Patient had a needle guided biopsy done, results of which are pending. 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 (3) COPD (chronic obstructive pulmonary disease) Is this a current diagnosis for this admission?: Yes (4) GERD (gastroesophageal reflux disease) Is this a current diagnosis for this admission?: Yes (5) Hyperlipidemia Is this a current diagnosis for this admission?: Yes (6) Hypertension Is this a current diagnosis for this admission?: Yes - Additional Information Resuscitation Status: Full Code Discharge Diet: Regular Discharge Activity: Activity As Tolerated Home Medications: Fexofenadine HCl [Sammi] 180 mg PO DAILY 09/27/16 Fluticasone Propionate [Flonase Nasal [place] 50 Mcg/[place] 16 gm] 2 spray NASL DAILY 09/27/16 Fluticasone/Salmeterol [Advair 500-50 Diskus 28 Dose] 1 puff IH DAILY 09/27/16 Guaifenesin [Mucinex] 2 tab PO BID 09/27/16 Montelukast Sodium [Singulair 10 mg Tablet] 10 mg PO QPM 09/27/16 [place]-3 Acid Ethyl Esters [Lovaza 1 gm Capsule] 2 gm PO BID 09/27/16 Omeprazole 20 mg PO DAILY 09/27/16 Simvastatin [Zocor 80 mg Tablet] 80 mg PO QHS 09/27/16 Tiotropium [place] [Spiriva Hand[place]er 18 mcg/dose (30 Dose)] 1 cap IH DAILY Vitamin E [Natural Vitamin E] 200 unit PO DAILY 09/27/16 Finasteride 5 mg PO QPM 09/28/16 Prednisone 1 tab PO DAILY 09/28/16 Enoxaparin Sodium [Lovenox Inj 80 mg/0.8 ml Disp.syrin] 70 mg SUBCUT Q12A #60 disp.syrin 10/01/16 Oxycodone HCl/Acetaminophen [Percocet 5-325 mg Tablet] 1 tab PO Q4HP PRN #30 tablet 10/01/16 History of Present Illness History of Present Illness: JADEN TIJERINA is a 80 year old male who was admitted from the emergency room after going to his primary care doctor with complaint of abdominal pain. The patient had an ultrasound which showed him to have an inferior vena cava clot and a large hepatic mass possibly 20 cm in size. Hospital Course Hospital Course: 80-year-old male who presented with abdominal pain to his primary care doctor. He had an ultrasound which showed a vena cava clot as well as a large liver mass. Patient was admitted and started anticoagulation. Patient then underwent a CT-guided liver biopsy of the large liver mass. This is presumed to be hepatocellular carcinoma however the biopsy results are pending at this time. The patient was restarted on Lovenox for anticoagulation given his IVC thrombosis. Patient was seen by oncology who will be following up the patient as an outpatient on the results of the liver biopsy. Patient will be sent home on Lovenox given that this is a tumor related thrombosis. Physical Exam Vital Signs: Temp Pulse Resp BP Pulse Ox 97.8 F 81 18 136/65 H 94 10/01/16 13:16 10/01/16 13:16 10/01/16 13:16 10/01/16 13:16 10/01/16 13:16 Intake & Output 09/30/16 10/01/16 10/02/16 06:59 06:59 06:59 Intake Total 2983 2511 Balance 2983 2511 Weight 73.4 kg 73.3 kg General appearance: PRESENT: no acute distress Eye exam: PRESENT: conjunctiva pink. ABSENT: scleral icterus Mouth exam: PRESENT: moist, tongue midline Neck exam: ABSENT: JVD Respiratory exam: PRESENT: clear to auscultation stephen. ABSENT: rales, rhonchi, wheezes Cardiovascular exam: PRESENT: RRR. ABSENT: diastolic murmur, rubs, systolic murmur GI/Abdominal exam: PRESENT: normal bowel sounds, soft. ABSENT: distended, guarding, mass, organolmegaly, rebound, tenderness Extremities exam: ABSENT: calf tenderness, clubbing, pedal edema Neurological exam: PRESENT: alert, awake, oriented to person, oriented to place , oriented to time, oriented to situation Psychiatric exam: PRESENT: appropriate affect Skin exam: PRESENT: dry, intact, warm. ABSENT: cyanosis, rash Results Laboratory Results: 09/30/16 06:19 09/28/16 05:43 Impressions: Chest X-Ray 09/27/16 12:52 IMPRESSION: COPD. NO ACUTE RADIOGRAPHIC FINDING IN THE CHEST. Abdomen/Pelvis CT 09/27/16 15:05 IMPRESSION: 20 cm heterogeneous enhancing mass centered in the right lobe of the liver. Mass effect is present on adjacent structures with mild intrahepatic biliary ductal dilatation in the inferior right lobe. No thrombus is identified in the portal or IVC in its enhanced portions, there is significant compression of the IVC above the renal vessel level to the diaphragmatic hiatus. 10 mm nodule in the right major fissure. Chest CT 09/28/16 00:00 IMPRESSION: No acute consolidations or pleural effusions are identified. Emphysematous changes with chronic appearing interstitial changes. Other findings as noted above Head CT 09/28/16 00:00 IMPRESSION: MILD CHRONIC CHANGES OF ATROPHY AND MICROVASCULAR ISCHEMIA. NO ACUTE PROCESS. NO ENHANCING LESIONS. NO ABNORMAL ENHANCEMENT. Guidance Needle Placement CT 09/30/16 00:00 IMPRESSION: CT GUIDED RIGHT LOBE LIVER MASS BIOPSY PERFORMED ABOVE. PATHOLOGY PENDING. NO IMMEDIATE COMPLICATIONS. Liver Biopsy CT 09/30/16 00:00 IMPRESSION: CT GUIDED RIGHT LOBE LIVER MASS BIOPSY PERFORMED ABOVE. PATHOLOGY PENDING. NO IMMEDIATE COMPLICATIONS. Qualifiers PATEINT BEING DISCHARGED WITH ANY OF THE FOLLOWING DIAGNOSIS?: No Plan Discharge Plan: Charged home in stable condition. Will follow up with oncology in 1 week. Time Spent: Greater than 30 Minutes
== END 2016-10-01 13:42 | disposition home or self-care (01) | DRG 435 ==
LOC: ER 12:31 → UNDOADMIN 16:16 → EH 16:16 → 4S 23:48
PROC: 0FB13ZX Excision of Right Lobe Liver, Percutaneous Approach, Diagnostic (ICD-10-PCS; principal; 2016-09-30)
DX: C22.0 Liver cell carcinoma (principal); I82.0 Budd-Chiari syndrome; I10 Essential (primary) hypertension; J44.9 Chronic obstructive pulmonary disease, unspecified; E78.5 Hyperlipidemia, unspecified; K21.9 Gastro-esophageal reflux disease without esophagitis; Z80.9 Family history of malignant neoplasm, unspecified; Z88.6 Allergy status to analgesic agent; Z91.040 Latex allergy status; Z88.2 Allergy status to sulfonamides; Z88.0 Allergy status to penicillin; Z88.3 Allergy status to other anti-infective agents
CPT/HCPCS: 36415; 47000; 70470; 71020; 71260; 74177; 77012; 80048; 80053; 80074; 81001; 82105; 82272; 82378; 82550; 82553; 83690; 83735; 84100; 84484; 85025; 85027; 85610; 85730; 88305; 88313; 88341; 88342; 93005; 93010; 99285; J1650; J2250; J3010; J3490; J7030; J7512

== ENCOUNTER → 2017-01-13 | Outpatient (CLI) | payer MEDICARE, OTHER ==
--- NOTE | 2017-01-13 10:50 | RADIOLOGY REPORT (SQ) ---
EXAM DESCRIPTION: CT CHEST WITH COMPLETED DATE/TIME: 01/13/2017 9:30 am REASON FOR STUDY: LIVER CELL CARCINOMA C22.0 LIVER CELL CARCINOMA COMPARISON: None. TECHNIQUE: CT scan of the chest performed using helical scanning technique with dynamic intravenous contrast injection. Images reviewed with lung, soft tissue and bone windows. Reconstructed coronal and sagittal MPR images reviewed. All images stored on PACS. All CT scanners at this facility use dose modulation, iterative reconstruction, and/or weight based d osing when appropriate to reduce radiation dose to as low as reasonably achievable (ALARA). [facility]: Dose Right [facility]: CareDose [facility]: Dose Right [facility]: Teradose 4D [facility]: earthmine CONTRAST TYPE AND DOSE: 75 cc Isovue 370- low osmolar. RENAL FUNCTION: Creatinine 0.8 RADIATION DOSE: 19.4mGy. LIMITATIONS: None. FINDINGS: LUNGS AND PLEURA: Centrilobular emphysematous changes are present. Pleural/parenchymal sc arring is present in the apices. There is no pulmonary mass or pulmonary infiltrate. There is a sma ll right pleural effusion. HILAR AND MEDIASTINAL STRUCTURES: There are some nonspecific mediastinal nodes. The largest is a pre carinal node that measures 12 mm in short axis diameter. HEART AND VASCULAR STRUCTURES: No aneurysm or dissection. No central pulmonary emboli. No pericardi al effusion. HARDWARE: None in the chest. UPPER ABDOMEN: See separate report of the CT of the abdomen. THYROID AND OTHER SOFT TISSUES: No masses. No adenopathy. BONES: No significant finding. OTHER: No other significant finding. IMPRESSION: 1. There are chronic lung changes with no acute cardiopulmonary disease. There is a ve ry small right pleural effusion. 2. There are some nonspecific mediastinal nodes. TECHNICAL DOCUMENTATION: JOB ID: [id number] Quality ID # [id number]: Final reports with documentation of one or more dose reduction techniques (e.g., Au tomated exposure control, adjustment of the mA and/or kV according to patient size, use of iterative reconstruction technique) 2010 [employer]- All Rights Reserved
--- NOTE | 2017-01-13 11:04 | RADIOLOGY REPORT (SQ) ---
EXAM DESCRIPTION: CT ABD/PELVIS WITH IV ONLY COMPLETED DATE/TIME: 01/13/2017 9:30 am REASON FOR STUDY: LIVER CELL CARCINOMA C22.0 LIVER CELL CARCINOMA COMPARISON: None. TECHNIQUE: CT scan of the abdomen and pelvis performed using helical scanning technique with dynamic intravenous contrast injection. No oral contrast. Images reviewed with lung, soft tissue, and bone windows. Reconstructed coronal and sagittal MPR images reviewed. Delayed images for evaluation of the urinary system also acquired. All images stored on PACS. All CT scanners at this facility use dose modulation, iterative reconstruction, and/or weight based d osing when appropriate to reduce radiation dose to as low as reasonably achievable (ALARA). [facility]: Dose Right [facility]: CareDose [facility]: Dose Right [facility]: Teradose 4D [facility]: [employer] CONTRAST TYPE AND DOSE: 75 cc Isovue 370- low osmolar. RENAL FUNCTION: Creatinine 0.8 RADIATION DOSE: 19.4mGy. LIMITATIONS: None. FINDINGS: LOWER CHEST: See separate report of the CT of the chest. LIVER: The liver is enlarged. There is a large, heterogeneously enhancing mass in the right lobe of the liver. This measures 19.9 x 11.7 cm on image 27 series 3. There is a large area of central necr osis. This extends 24 cm in vertical dimension. No additional hepatic lesions are seen. SPLEEN: Normal size. No focal lesions. PANCREAS: No masses. No significant calcifications. No adjacent inflammation or peripancreatic fluid collections. Pancreatic duct not dilated. GALLBLADDER: No identified stones by CT criteria. No inflammatory changes to suggest cholecystitis. ADRENAL GLANDS: No significant masses or asymmetry. RIGHT KIDNEY AND URETER: No solid masses. No significant calcifications. No hydronephrosis or hyd roureter. LEFT KIDNEY AND URETER: No solid masses. No significant calcifications. No hydronephrosis or hydr oureter. AORTA AND VESSELS: No aneurysm. No dissection. Renal arteries, SMA, celiac without stenosis. RETROPERITONEUM: No retroperitoneal adenopathy, hemorrhage or masses. BOWEL AND PERITONEAL CAVITY: Large numbers of diverticula arise from the transverse colon, the left c olon, and particularly the sigmoid. There are no associated acute inflammatory changes. There is mi nimal ascites. APPENDIX: Not identified. PELVIS: There is a small amount of free fluid. Urinary bladder is normal. ABDOMINAL WALL: No masses. No hernias. BONES: There is mild degenerative disc disease and spondylosis in the lumbar spine. OTHER: No other significant finding. IMPRESSION: 1. There is a large hepatic mass consistent with the diagnosis of hepatocellular carcin duran. 2. There is a small amount of ascites. 3. No metastases are seen. TECHNICAL DOCUMENTATION: JOB ID: [id number] Quality ID # [id number]: Final reports with documentation of one or more dose reduction techniques (e.g., Au tomated exposure control, adjustment of the mA and/or kV according to patient size, use of iterative reconstruction technique) 2010 [employer]- All Rights Reserved
== END ==
LOC: RAD 08:38
PROVIDERS: ATTEND Internal Medicine
DX: C22.0 Liver cell carcinoma (principal)
CPT/HCPCS: 71260; 74177; 82565

== ENCOUNTER → 2017-05-12 | Outpatient (CLI) | payer MEDICARE, OTHER ==
--- NOTE | 2017-05-12 16:00 | RADIOLOGY REPORT (SQ) ---
EXAM DESCRIPTION: MRI LUMBAR SPINE COMBO COMPLETED DATE/TIME: 05/12/2017 3:02 pm REASON FOR STUDY: RADICULOPATHY (M54.16) M54.16 RADICULOPATHY, LUMBAR REGION COMPARISON: None. TECHNIQUE: Sagittal and Axial imaging includes T1, T1 post gadolinium, T2, STIR and gradient echo se quences. Coronal T2/HASTE imaging. CONTRAST TYPE AND DOSE: 12 mL Multihance. RENAL FUNCTION: GFR > 60. LIMITATIONS: None. FINDINGS: VISUALIZED UPPER ABDOMEN: Partial visualization of known liver mass consistent with diagno sis of hepatocellular carcinoma. No additional acute or significant findings. SEGMENTATION: No transitional anatomy. The lowest well-developed disc space is labeled L5-S1. ALIGNMENT: Anatomic. VERTEBRAE: Mild pathologic compression fracture of the L3 vertebral body. Vertebrae heights otherwis e maintained. BONE MARROW: There is a T1 hypointense/T2 hyperintense mass involving the left half of the L3 vertebr al body compatible with a metastatic lesion. There is adjacent marrow edema and acute endplate angel e inferiorly. DISC SIGNAL: Normal. No significant abnormal signal or loss of height. POSTERIOR ELEMENTS: Generally intact. No pars defect evident. HARDWARE: None in the spine. CORD AND CONUS: Normal in size and signal intensity. Conus at the appropriate level. SOFT TISSUES: No additional acute or significant findings. L1-L2: Mild broad-based disc bulging along with ligamentum flavum hypertrophy and facet arthropathy. No significant spinal canal stenosis or neural foraminal narrowing. L2-L3: Broad-based disc bulging along with ligamentum flavum hypertrophy and facet arthropathy result ing in moderate to severe spinal canal stenosis with the spinal canal measuring approximately 7 mm. Additional mild to moderate bilateral neural foraminal narrowing. L3-L4: Broad-based disc bulging with ligamentum flavum hypertrophy and facet arthropathy resulting in moderate to severe spinal canal stenosis with the spinal canal measuring 6 mm and [id number] b ilateral neural foraminal narrowing. L4-L5: Broad-based disc bulging along with ligamentum flavum hypertrophy and facet arthropathy. Ther e is mild spinal canal stenosis and moderate bilateral neural foraminal narrowing. L5-S1: No significant spinal stenosis or exit foraminal stenosis. LOWER THORACIC: Incompletely imaged. No stenosis seen. SACRUM: Visualized upper sacrum intact. ENHANCEMENT: No abnormal enhancement. OTHER: No other significant findings. IMPRESSION: PATHOLOGIC FRACTURE INVOLVING THE L3 VERTEBRAL BODY WHICH IS NEW WHEN COMPARED TO CT FRO M 01/13/2017. ADVANCED MULTILEVEL DEGENERATIVE CHANGE DETAILED ABOVE WHICH IS MOST SEVERE AT THE L2-L3 AND L3-L4 LEVELS WHERE THERE IS MODERATE TO SEVERE SPINAL CANAL STENOSIS AND AT THE L4-L5 LEVEL WHERE THERE IS MODERATE BILATERAL NEURAL FORAMINAL NARROWING. TECHNICAL DOCUMENTATION: JOB ID: [id number] [employer]- All Rights Reserved
== END ==
LOC: RAD 13:48
PROVIDERS: ATTEND Orthopaedic Surgery
DX: M54.16 Radiculopathy, lumbar region (principal); M84.48XA Pathological fracture, other site, initial encounter for fracture
CPT/HCPCS: 82565; 72158; A9577

== ENCOUNTER → 2017-05-20 | Outpatient (CLI) | payer MEDICARE, OTHER ==
--- NOTE | 2017-05-20 09:48 | RADIOLOGY REPORT (SQ) ---
EXAM DESCRIPTION: CT ABD/PELVIS WITH IV ONLY COMPLETED DATE/TIME: 05/20/2017 9:18 am REASON FOR STUDY: LIVER CELL CARCINOMA (C22.0) C22.0 LIVER CELL CARCINOMA COMPARISON: Liver biopsy 09/30/2016 CT abdomen pelvis 01/13/2017, CT abdomen pelvis 09/27/2016 TECHNIQUE: CT scan of the abdomen and pelvis performed using helical scanning technique with dynamic intravenous contrast injection. No oral contrast. Images reviewed with lung, soft tissue, and bone windows. Reconstructed coronal and sagittal MPR images reviewed. Delayed images for evaluation of the urinary system also acquired. All images stored on PACS. All CT scanners at this facility use dose modulation, iterative reconstruction, and/or weight based d osing when appropriate to reduce radiation dose to as low as reasonably achievable (ALARA). [facility]: Dose Right [facility]: CareDose [facility]: Dose Right [facility]: Teradose 4D [facility]: [employer] CONTRAST TYPE AND DOSE: contrast/concentration: Isovue 370.00 mg/ml; Total Contrast Delivered: 72.0 ml; Total Saline Delivered: 66.0 ml RENAL FUNCTION: Creatinine 1.0 RADIATION DOSE: Up-to-date CT equipment and radiation dose reduction techniques were employed. CTDIv ol: 3.5 - 4.1 mGy. DLP: 411 mGy-cm.. LIMITATIONS: None. FINDINGS: LOWER CHEST: Obstructive lung disease at both bases LIVER: Again, the right lobe liver and left lobe liver lateral to the falciform ligament is replaced by a huge hepatic tumor with neovascularity and contrast fluid fluid levels on arterial phase imaging , similar compared to the prior studies. This was biopsied and proven to hepatocellular malignancy. Overall, this mass is similar compared to previous exams, 21 AP x 12 transverse x 28 cm craniocaudal in size. No liver acute subcapsular hemorrhage. There is trace fluid on axial image 58 and coronal reconstruction images 37-45 between the inferior t ip right lobe liver and hepatic flexure of colon. SPLEEN: Normal size. No focal lesions. PANCREAS: No masses. No significant calcifications. No adjacent inflammation or peripancreatic fluid collections. Pancreatic duct not dilated. GALLBLADDER: No identified stones by CT criteria. No inflammatory changes to suggest cholecystitis. ADRENAL GLANDS: No significant masses or asymmetry. RIGHT KIDNEY AND URETER: No solid masses. No significant calcifications. No hydronephrosis or hyd roureter. LEFT KIDNEY AND URETER: No solid masses. No significant calcifications. No hydronephrosis or hydr oureter. AORTA AND VESSELS: No aneurysm. No dissection. Renal arteries, SMA, celiac without stenosis. RETROPERITONEUM: No retroperitoneal adenopathy, hemorrhage or masses. BOWEL AND PERITONEAL CAVITY: No masses or inflammatory changes. No free fluid or peritoneal masses. APPENDIX: Normal. PELVIS: No mass. No free fluid. Normal bladder. ABDOMINAL WALL: No masses. No hernias. BONES: No significant or acute findings. OTHER: Results discussed with Dr. Henry IMPRESSION: Massive right hepatic tumor, with minimal change since 01/13/2017. TECHNICAL DOCUMENTATION: JOB ID: [id number] Quality ID # [id number]: Final reports with documentation of one or more dose reduction techniques (e.g., Au tomated exposure control, adjustment of the mA and/or kV according to patient size, use of iterative reconstruction technique) 2010 [employer]- All Rights Reserved
== END ==
LOC: RAD 08:05
PROVIDERS: ATTEND Internal Medicine
DX: C22.0 Liver cell carcinoma (principal)
CPT/HCPCS: 74177; 82565

== ENCOUNTER 2017-08-16 08:51 | Emergency (ER) | payer MEDICARE, OTHER ==
--- NOTE | 2017-08-16 10:56 | RADIOLOGY REPORT (SQ) ---
EXAM DESCRIPTION: CHEST PA/LAT COMPLETED DATE/TIME: 08/16/2017 10:21 am REASON FOR STUDY: sob COMPARISON: 09/27/2016. EXAM PARAMETERS: NUMBER OF VIEWS: two views TECHNIQUE: Digital Frontal and Lateral radiographic views of the chest acquired. RADIATION DOSE: NA LIMITATIONS: none FINDINGS: LUNGS AND PLEURA: Since the prior study there has been development of infiltrate at the ri t lung base with right pleural effusion. Changes of COPD with fibrotic scarring at left lung apex again noted. Chronic left pleural thickening. MEDIASTINUM AND HILAR STRUCTURES: No masses or contour abnormalities. HEART AND VASCULAR STRUCTURES: The heart is borderline in size with uncoiling thoracic aorta. BONES: Mid and lower dorsal spondylosis. HARDWARE: None in the chest. OTHER: No other significant finding. IMPRESSION: 1. COPD. Interval development of right lower lobe infiltrate and effusion. Chronic le ft pleural thickening. TECHNICAL DOCUMENTATION: JOB ID: [id number] [employer]- All Rights Reserved
[2017-08-16] MEDS ORDERED: LEVOFLOXACIN 500 MG/D5W RTU 500 MG/100 ML RTUPB IV ONE (11:01)
[2017-08-16 12:03] LABS: ABSOLUTE LYMPHOCYTES (AUTO) 0.6 10^3/uL (0.5-4.7); ABSOLUTE MONOCYTES (AUTO) 0.7 10^3/uL (0.1-1.4); ABSOLUTE NEUT (AUTO) 7.5 10^3/uL (1.7-8.2); BASOPHILS % (AUTO) 0.3 % (0-2); EOSINOPHILS % (AUTO) 0.4 % (0-6); HEMOGLOBIN 8.7 g/dL (13.5-17.0); LYMPHOCYTES % (AUTO) 7.2 % (13-45); MEAN CORPUSCULAR HEMOGLOBIN 24.5 pg (27.0-33.4); MEAN CORPUSCULAR HGB CONC 32.3 g/dL (32.0-36.0); MEAN CORPUSCULAR VOLUME 76 fl (80-97); MONOCYTES % (AUTO) 7.4 % (3-13); PLATELET COUNT 444 10^3/uL (150-450); RED BLOOD COUNT 3.56 10^6/uL (4.35-5.55); RED CELL DISTRIBUTION WIDTH 19.5 % (11.5-14.0); SEGMENTED NEUTROPHILS % (AUTO) 84.7 % (42-78); TOTAL CELLS COUNTED % (AUTO) 100 %; WHITE BLOOD COUNT 8.9 10^3/uL (4.0-10.5)
[2017-08-16 12:19] LABS: ANION GAP 14 (5-19); BLOOD UREA NITROGEN 44 mg/dL (7-20); CALCIUM 9.7 mg/dL (8.4-10.2); CARBON DIOXIDE 26 mmol/L (22-30); CHLORIDE 89 mmol/L (98-107); GLUCOSE 83 mg/dL (75-110); POTASSIUM 4.5 mmol/L (3.6-5.0); SODIUM 129.2 mmol/L (137-145)
--- NOTE | 2017-08-16 14:00 | ER Document Report ---
ED General - General Chief Complaint: Shortness Of Breath Stated Complaint: SHORTNESS OF BREATH Time Seen by Provider: 08/16/17 09:59 TRAVEL OUTSIDE OF THE [place] IN LAST 30 DAYS: No - HPI Patient complains to provider of: Shortness of breath Notes: Patient coming in for evaluation shortness of breath. Patient has a history of liver cancer with a mass that surrounding the major vessels according to the is nonoperable. Patient oncologist is Dr. Hernadez PCP is Dr. Jose Nation according to the patient was seen recently for shortness of breath Dr. Nation's office had chest x-ray performed showing concerns for pneumonia and pleural effusion was started on doxycycline also high dose of Lasix and told to come to the ER at that time for thoracentesis and drainage of the pleural effusion. states that it did not come at that time because of the brain however presents this morning for her thoracentesis. Denies any fevers patient does state he has been having chills patient does have a cough has a history of COPD. No other complaints denies chest pain abdominal pain nausea vomiting. Patient otherwise ambulated to his room in the ER without difficulty. Patient looks to be in no obvious distress - Related Data Allergies/Adverse Reactions: aspirin [Aspirin] Allergy (Verified 09/27/16 12:48) bacitracin [Bacitracin] Allergy (Verified 09/27/16 12:48) diphenhydramine HCl [From Benadryl] Allergy (Verified 09/27/16 12:48) latex Allergy (Verified 09/27/16 12:48) Penicillins Allergy (Verified 09/27/16 12:48) Sulfa (Sulfonamide Antibiotics) Allergy (Verified 09/27/16 12:48) ibuprofen Adverse Reaction (Verified 09/27/16 12:48) naproxen sodium [From Aleve] Adverse Reaction (Verified 09/27/16 12:48) Past Medical History - Social History Smoking Status: Unknown if Ever Smoked Family History: Malignancy - Past Medical History Cardiac Medical History: Reports: Hx Heart Attack, Hx Hypercholesterolemia, Hx Hypertension Pulmonary Medical History: Reports: Hx COPD Denies: Hx Tuberculosis Renal/ Medical History: Denies: Hx Peritoneal Dialysis GI Medical History: Reports: Hx Gastroesophageal Reflux Disease Past Surgical History: Reports: Hx Carotid Endarterectomy, Hx Herniorrhaphy, Other - Chest tube placement - Immunizations Hx Diphtheria, Pertussis, Tetanus Vaccination: No Hx Pneumococcal Vaccination: 07/16/13 Review of Systems - Review of Systems Constitutional: No symptoms reported EENT: No symptoms reported Cardiovascular: No symptoms reported Respiratory: Short of breath Gastrointestinal: No symptoms reported Genitourinary: No symptoms reported Male Genitourinary: No symptoms reported Musculoskeletal: No symptoms reported Skin: No symptoms reported Hematologic/Lymphatic: No symptoms reported Neurological/Psychological: No symptoms reported Physical Exam - Vital signs Vitals: Temp Pulse Resp BP Pulse Ox 97.3 F 90 14 112/53 L 100 08/16/17 09:10 08/16/17 09:10 08/16/17 09:10 08/16/17 09:10 08/16/17 09:10 Interpretation: Normal - General General appearance: Appears well, Alert - HEENT Head: Normocephalic, Atraumatic Eyes: Normal Pupils: PERRL - Respiratory Respiratory status: No respiratory distress Chest status: Nontender Breath sounds: Normal Chest palpation: Normal - Cardiovascular Rhythm: Regular Heart sounds: Normal auscultation Murmur: No - Abdominal Inspection: Normal Distension: No distension Bowel sounds: Normal Tenderness: Nontender Organomegaly: No organomegaly - Back Back: Normal, Nontender - Extremities General upper extremity: Normal inspection, Nontender, Normal color, Normal ROM , Normal temperature General lower extremity: Normal inspection, Nontender, Normal color, Normal ROM , Normal temperature, Normal weight bearing. No: Tyron's sign - Neurological Neuro grossly intact: Yes Cognition: Normal Orientation: AAOx4 Nayan Coma Scale Eye Opening: Spontaneous [place] Coma Scale Verbal: Oriented Nayan Coma Scale Motor: Obeys Commands Nayan Coma Scale Total: 15 Speech: Normal Motor strength normal: LUE, RUE, LLE, RLE Sensory: Normal - Psychological Associated symptoms: Normal affect, Normal mood - Skin Skin Temperature: Warm Skin Moisture: Dry Skin Color: Normal Course - Re-evaluation Re-evalutation: 08/16/17 14:28 Examination initially showed clear lung sounds chest x-ray was performed showing possibly the development of a right lower lobe infiltrate with a pleural effusion. Patient was given IV dose of Levaquin and basic lab work was checked. No signs of any critical pathology. Chronic anemia although this is stable trending up previous labs. Patient was able to ambulate around the ER with no signs of hypoxia. No tachypnea here vital signs remained normal. Did discuss with oncologist Dr. Orr agrees with more likely needing thoracentesis however no need for emergent thoracentesis at this time agrees with antibiotics patient will follow-up in his office on Friday and they will schedule thoracentesis later on in the week. I believe this to be a better plan for the patient is that we do not have this capability at this time over the weekend do not think that the patient would not require admission for this to be performed on Friday either as well. Discussed with the family. Doxycycline will continue on Levaquin patient agrees with this plan continues other medications. - Vital Signs Vital signs: Temp Pulse Resp BP Pulse Ox 97.3 F 90 14 112/53 L 100 08/16/17 09:10 08/16/17 09:10 08/16/17 09:10 08/16/17 09:10 08/16/17 09:10 - Laboratory Result Diagrams: 08/16/17 11:40 08/16/17 11:40 Laboratory results interpreted by me: 08/16/17 08/16/17 11:40 11:40 RBC 3.56 L Hgb 8.7 L Hct 27.0 L MCV 76 L MCH 24.5 L RDW 19.5 H Seg Neutrophils % 84.7 H Lymphocytes % 7.2 L Sodium 129.2 L Chloride 89 L BUN 44 H Discharge - Discharge Clinical Impression: Pleural effusion right-sided COPD (chronic obstructive pulmonary disease) Qualifiers: COPD type: unspecified COPD Qualified Code(s): J44.9 - Chronic obstructive pulmonary disease, unspecified Pneumonia Qualifiers: Pneumonia type: due to unspecified organism Laterality: right Lung location: lower lobe of lung Qualified Code(s): J18.1 - Lobar pneumonia, unspecified organism Condition: Good Disposition: HOME, SELF-CARE Instructions: Pleural Effusion ([facility]), Pneumonia ([facility]) Additional Instructions: Your chest x-ray does show pneumonia today more likely explaining the chills. We will start you on antibiotic called Levaquin. Please stop the doxycycline. Your chest x-ray does show an effusion to that more likely will probably need to be drained however there is no indication that she will need this emergently drain at this time. I did discuss this with your oncologist Dr Orr. Please follow-up and give his office a call on Friday more likely you will need to go into his office for a visit on Friday for discussion about stopping some your blood thinning medication so that the procedure to drain the pleural effusion, thoracentesis can be performed later on the week. Return to the ER symptoms worsen. Continue your home medications otherwise as prescribed. Prescriptions: Levofloxacin 500 mg PO DAILY #9 tablet Referrals: PASTOR NATION PA-C [Primary Care Provider] - Follow up in 3-5 days REJI HINES MD [ACTIVE STAFF] - 08/18/17
[2017-08-16 14:37] VITALS: BP 122/57
== END 2017-08-16 14:35 | disposition home or self-care (01) ==
LOC: ER 08:51
DX: J44.0 Chronic obstructive pulmonary disease with (acute) lower respiratory infection (principal); J18.1 Lobar pneumonia, unspecified organism; J90 Pleural effusion, not elsewhere classified; R06.02 Shortness of breath; R68.83 Chills (without fever); R05 Cough; D64.9 Anemia, unspecified; C22.8 Malignant neoplasm of liver, primary, unspecified as to type; I25.2 Old myocardial infarction; I10 Essential (primary) hypertension; Z88.6 Allergy status to analgesic agent; Z88.8 Allergy status to other drugs, medicaments and biological substances; Z91.040 Latex allergy status; Z88.1 Allergy status to other antibiotic agents; Z88.0 Allergy status to penicillin; Z88.2 Allergy status to sulfonamides
CPT/HCPCS: 99285; 96365; 36415; 87040; 85025; 80048; 71046; J1956

== ENCOUNTER 2017-08-22 09:38 | Day surgery (SDC) | payer MEDICARE, OTHER ==
[2017-08-22 11:16] LABS: HEMATOCRIT 28.1 % (37.9-51.0); HEMOGLOBIN 9.3 g/dL (13.5-17.0); MEAN CORPUSCULAR HEMOGLOBIN 24.3 pg (27.0-33.4); MEAN CORPUSCULAR VOLUME 74 fl (80-97); PLATELET COUNT 388 10^3/uL (150-450); RED BLOOD COUNT 3.82 10^6/uL (4.35-5.55); RED CELL DISTRIBUTION WIDTH 19.4 % (11.5-14.0); WHITE BLOOD COUNT 11.3 10^3/uL (4.0-10.5)
[2017-08-22 11:19] LABS: INTERNATIONAL RATION (INR) 1.07; PROTHROMBIN TIME 14.7 SEC (11.4-15.4)
[2017-08-22 11:20] LABS: PARTIAL THROMBOPLASTIN TIME 55.3 SEC (23.5-35.8)
[2017-08-22 11:30] LABS: BLOOD UREA NITROGEN 67 mg/dL (7-20)
[2017-08-22 13:16] VITALS: BP 120/59
--- NOTE | 2017-08-22 13:17 | RADIOLOGY REPORT (SQ) ---
EXAM DESCRIPTION: U/S CHEST COMPLETED DATE/TIME: 08/22/2017 12:24 pm REASON FOR STUDY: PLEURAL EFFUSION COMPARISON: None. TECHNIQUE: Sonographic sections through the right thorax were obtained in varying positions. LIMITATIONS: None. FINDINGS: A small right pleural effusion is identified. Due to the small volume of the pleural effu andi a thoracentesis was not performed. IMPRESSION: Small right pleural effusion as noted above TECHNICAL DOCUMENTATION: JOB ID: [id number] [employer]- All Rights Reserved
== END 2017-08-22 13:40 | disposition home or self-care (01) ==
LOC: RAD 09:38
PROVIDERS: ATTEND Internal Medicine
DX: J90 Pleural effusion, not elsewhere classified (principal); C22.0 Liver cell carcinoma; Z79.01 Long term (current) use of anticoagulants; Z53.9 Procedure and treatment not carried out, unspecified reason
CPT/HCPCS: 36415; 71260; 74177; 76604; 82565; 84520; 85027; 85610; 85730

== ENCOUNTER → 2017-08-22 | Outpatient (CLI) | payer MEDICARE, OTHER ==
--- NOTE | 2017-08-22 15:02 | RADIOLOGY REPORT (SQ) ---
EXAM DESCRIPTION: CT CHEST WITH; CT ABD/PELVIS WITH IV ONLY COMPLETED DATE/TIME: 08/22/2017 1:02 pm REASON FOR STUDY: LIVER CELL CARCINOMA; LIVER CELL CARCINOMA (C22.0) C22.0 LIVER CELL CARCINOMA COMPARISON: CT chest 09/28/2016, July 2017 CT abdomen pelvis 05/20/2017, 01/13/2017, 09/27/2016 CONTRAST TYPE AND DOSE: contrast/concentration: Isovue 370.00 mg/ml; Total Contrast Delivered: 71.0 ml; Total Saline Delivered: 58.0 ml RENAL FUNCTION: Creatinine 1.2 TECHNIQUE: CT scan of the chest performed using helical scanning technique with dynamic intravenous contrast injection. Images reviewed with lung, soft tissue and bone windows. Reconstructed coronal a nd sagittal MPR images reviewed. All images stored on PACS. CT scan of the abdomen and pelvis performed with intravenous and without oral contrastusing helical s oskar technique with dynamic intravenous contrast injection. Images reviewed with lung, soft tissu e and bone windows. Reconstructed coronal and sagittal MPR images reviewed. Delayed images for eval uation of the urinary system also acquired and evaluated. All images stored on PACS. All CT scanners at this facility use dose modulation, iterative reconstruction, and/or weight based d osing when appropriate to reduce radiation dose to as low as reasonably achievable (ALARA). [facility]: Dose Right [facility]: CareDose [facility]: Dose Right [facility]: Teradose 4D [facility]: [employer] RADIATION DOSE: CT Rad equipment meets quality standard of care and radiation dose reduction techniq ues were employed. CTDIvol: 4.6 - 7.2 mGy. DLP: 788 mGy-cm. . LIMITATIONS: None. FINDINGS: CHEST: LUNGS AND PLEURA: Advanced obstructive lung disease throughout both for right and left lungs. No wor risome pulmonary nodules. No acute infiltrates. Trace right pleural effusion. No pneumothorax. HILAR AND MEDIASTINAL STRUCTURES: No identified masses or abnormal nodes. HEART AND VASCULAR STRUCTURES: No aneurysm or dissection. No central pulmonary emboli. No pericardi al effusion. HARDWARE: None. THYROID AND OTHER SOFT TISSUES: No masses. No adenopathy. BONES: Osteoporotic. No compression deformity. OTHER: No other significant finding. ABDOMEN AND PELVIS: LIVER: A huge mass replaces the majority of the right the partial left lobe liver, stable compared to previous exams. Mass measures 21 cm AP x 12 cm transverse by 28 cm craniocaudad, with enlarged intr a tumoral vascular spaces demonstrating fluid-fluid levels on the post contrasted images. Overall, t his is similar over the series of CT exams. SPLEEN: Normal size. No focal lesions. PANCREAS: No masses. No significant calcifications. No adjacent inflammation or peripancreatic fluid collections. Pancreatic duct not dilated. GALLBLADDER: No identified stones by CT criteria. No inflammatory changes to suggest cholecystitis. ADRENAL GLANDS: No significant masses or asymmetry. RIGHT KIDNEY AND URETER: No solid masses. No significant calcification. No hydronephrosis or hydroure ter. LEFT KIDNEY AND URETER: No solid masses. No significant calcification. No hydronephrosis or hydrouret er. AORTA AND VESSELS: No aneurysm. No dissection. Renal arteries, SMA, celiac without stenosis. RETROPERITONEUM: No retroperitoneal adenopathy, hemorrhage or masses. BOWEL AND PERITONEAL CAVITY: No masses or inflammatory changes. No free fluid or peritoneal masses. Multiple descending and sigmoid colon diverticuli without CT signs acute diverticulitis APPENDIX: Normal. ABDOMINAL WALL: No masses. No hernias. BONES: There is a L3 vertebral body metastatic lesion involving the leftward half of L3, with about 2 5% loss of height of L3. There is extraosseous extension of tumor into the ventral aspect of the lef t epidural space and into the left L3-4 neural foramen. These changes are best shown on axial postco ntrast series 3, images 36-40, coronal reconstruction images 61-72, and sagittal reconstruction image s 37-44. OTHER: No other significant finding. IMPRESSION: Trace right pleural effusion. No gross evidence of metastatic disease to the chest. Ob structive lung disease Huge liver tumor, stable. Interval development of of metastatic lesion in the leftward half of L3 with about 25% loss of verteb ral body height, and mild ventral epidural tumor at the L3 vertebral body level TECHNICAL DOCUMENTATION: JOB ID: [id number] Quality ID # [id number]: Final reports with documentation of one or more dose reduction techniques (e.g., Au tomated exposure control, adjustment of the mA and/or kV according to patient size, use of iterative reconstruction technique) 2010 [employer]- All Rights Reserved
== END ==
LOC: RAD 12:45
PROVIDERS: ATTEND Physician Assistant Medical
DX: C22.0 Liver cell carcinoma (principal)
CPT/HCPCS: 71260; 74177